=== PATIENT | male | born 1990 | race Hispanic/Latino ===

== ENCOUNTER 2016-10-05 20:05 | Emergency (ER) | payer SELFPAY ==
[~2016-10-05] VITALS: Ht 160 cm; Wt 68.0 kg
[2016-10-05 21:00] VITALS: BP 148/68
== END 2016-10-05 21:00 | disposition home or self-care (01) | DRG 730 ==
LOC: ED 20:05
DX: N48.9 Disorder of penis, unspecified (principal)

== ENCOUNTER 2017-09-16 21:15 | Emergency (ER) | payer SELFPAY ==
[~2017-09-16] VITALS: Ht 160 cm; Wt 61.4 kg
[2017-09-16] MEDS ORDERED: TORADOL PO (21:38)
[2017-09-16 22:12] VITALS: BP 117/64
== END 2017-09-16 22:14 | disposition home or self-care (01) | DRG 563 ==
LOC: ED 21:15
DX: S46.211A Strain of muscle, fascia and tendon of other parts of biceps, right arm, initial encounter (principal); X50.3XXA Overexertion from repetitive movements, initial encounter; Y93.89 Activity, other specified; Y92.89 Other specified places as the place of occurrence of the external cause; Y99.0 Civilian activity done for income or pay